=== PATIENT | female | born 1990 | race Caucasian/White ===

== ENCOUNTER 2019-06-19 16:48 | Emergency (ER) | payer MEDICAID ==
[~2019-06-19] VITALS: Ht 152.4 cm; Wt 73.5 kg
[~2019-06-19 16:48] MED LIST: PRENATAL VITAMI1 T10 PO
[2019-06-19 16:57] VITALS: Ht 152.4 cm; Wt 73.5 kg
[2019-06-19 17:55] VITALS: BP 130/74
== END 2019-06-19 17:55 | disposition home or self-care (01) ==
LOC: ED 16:48
DX: L03.011 Cellulitis of right finger (principal)